=== PATIENT | male | born 1990 | race Caucasian/White ===

== ENCOUNTER 2021-07-07 22:55 | Emergency (ER) | payer OTHER ==
[2021-07-07 23:58] LABS: HEMOGLOBIN 16.1 gm/dl (14.0-17.5); RED BLOOD COUNT 5.1 M/UL (4.20-5.50); WHITE BLOOD COUNT 13.2 K/UL (4.5-11.0)
[2021-07-08 00:23] LABS: BUN/CREATININE RATIO 21 (0-10)
[2021-07-08] MEDS ORDERED: MAALOX MAXIMUM355 ML PO (01:11)
[2021-07-08] MEDS ORDERED: PROTONIX 40 MG40 M1 PO (01:11)
== END 2021-07-08 01:50 | disposition home or self-care (01) ==
LOC: ER1 22:55
PROVIDERS: Family Medicine
DX: R10.13 Epigastric pain (principal); F17.210 Nicotine dependence, cigarettes, uncomplicated
CPT/HCPCS: 80053; 82550; 82553; 83874; 84484; 85025; 93005; 99285

== ENCOUNTER 2022-01-13 21:53 | Emergency (ER) | payer OTHER ==
[~2022-01-13 21:53] MED LIST: MAALOX MAXIMUM355 ML PO; PROTONIX 40 MG40 M1 PO
== END 2022-01-14 16:40 | disposition other institution (70) ==
LOC: ER1 21:53
PROVIDERS: Physician Assistant
DX: F32.A Depression, unspecified (principal); Z20.822 Contact with and (suspected) exposure to COVID-19; Z88.1 Allergy status to other antibiotic agents
CPT/HCPCS: 80307; 99284; G0480; U0002